=== PATIENT | female | born 1990 | race African-American/Black ===

== ENCOUNTER 2023-11-15 12:36 | Emergency (ER) | payer OTHER ==
[2023-11-15 12:45] VITALS: BMI 35.2
[2023-11-15] MEDS ORDERED: ACETAMINOPHEN INJECTION 100 ML IVPB ONE (13:25)
[2023-11-15] MEDS ORDERED: MAG HYDROX/AL HYDROX/SIMETH 30 ML UNIT-DOSE CUP ONE (13:25)
[2023-11-15] MEDS ORDERED: FAMOTIDINE 20 MG/50 ML IVPB 20 MG/50 ML MG IVPB ONE (13:25)
[2023-11-15 13:55] LABS: HEMATOCRIT 38.7 % (32.4-45.2); HEMOGLOBIN 12.5 GM/dL (10.7-15.3); MCH 26.4 pg (25.7-33.7); MCHC 32.4 g/dl (32.0-36.0); MEAN CELL VOLUME 81.5 fl (80-96); MEAN PLT VOLUME 7.6 fl (7.5-11.1); PLATELET COUNT 237 10^3/uL (134-434); RBC 4.75 M/mm3 (3.60-5.2); RDW 14.3 % (11.6-15.6); WHITE BLOOD COUNT 3.7 K/mm3 (4.0-10.0)
[2023-11-15] MEDS: MAG HYDROX/AL HYDROX/SIMETH 30 ML UNIT-DOSE CUP PO ONE (13:55)
[2023-11-15] MEDS: ACETAMINOPHEN 1000 MG/100 ML BAG IVPB ONE (13:55)
[2023-11-15] MEDS: SODIUM CHLORIDE 0.9% 500 ML INFUS.BAG IV ONE (13:55)
[2023-11-15] MEDS: FAMOTIDINE 20 MG/50 ML IVPB 20 MG/50 ML MG IVPB ONE (13:56)
[2023-11-15] MEDS ORDERED: KETOROLAC TROMETHAMINE 15 MG/ML VIAL ONE (14:09)
[2023-11-15] MEDS: KETOROLAC TROMETHAMINE 15 MG/ML VIAL IVPUSH ONE (14:11)
[2023-11-15 14:13] LABS: POTASSIUM 4.4 mmol/L (3.5-5.1)
[2023-11-15 14:16] LABS: ALBUMIN 3.6 g/dl (3.4-5.0); BLOOD UREA NITROGEN 10.8 mg/dL (7-18)
[2023-11-15 14:19] LABS: CREATININE 0.7 mg/dL (0.55-1.3)
[2023-11-15 14:20] LABS: TOT PROT 7.3 g/dl (6.4-8.2)
[2023-11-15 14:21] LABS: BILIRUBIN,TOTAL 0.3 mg/dL (0.2-1)
[2023-11-15 14:25] LABS: ANISOCYTOSIS 0; MACROCYTOSIS 0
[2023-11-15 14:31] LABS: MAGNESIUM 1.7 mg/dL (1.8-2.4)
[2023-11-15] MEDS ORDERED: MAGNESIUM OXIDE 400 MG TABLET (FP) ONE (14:46)
[2023-11-15] MEDS: MAGNESIUM OXIDE 400 MG TABLET (FP) PO ONE (14:50)
[2023-11-15 14:51] VITALS: BP 125/85; PULSE 75; RESP 19; TEMP 98
== END 2023-11-15 15:03 | disposition home or self-care (01) ==
LOC: JER 12:36
PROC: 3E033GC Introduction of Other Therapeutic Substance into Peripheral Vein, Percutaneous Approach (ICD-10-PCS; principal; 2023-11-15)
PROC: 3E033NZ Introduction of Analgesics, Hypnotics, Sedatives into Peripheral Vein, Percutaneous Approach (ICD-10-PCS; 2023-11-15)
PROC: 3E0333Z Introduction of Anti-inflammatory into Peripheral Vein, Percutaneous Approach (ICD-10-PCS; 2023-11-15)
DX: R07.89 Other chest pain (principal); Z20.822 Contact with and (suspected) exposure to COVID-19
CPT/HCPCS: 0241U-QW; 36415; 71046-TC-FY; 80053; 83690; 83735; 84439; 84443; 84484; 84703; 85025; 93005; 93010; 99285-25; J0131

== ENCOUNTER 2023-12-23 01:39 | Emergency (ER) | payer OTHER ==
[2023-12-23 01:48] VITALS: BP 128/87; RESP 18; TEMP 98.7; BMI 27.4
[2023-12-23] MEDS ORDERED: ACETAMINOPHEN 500 MG TABLET (FP) ONE (02:23)
[2023-12-23] MEDS: ACETAMINOPHEN 500 MG TABLET (FP) PO ONE (02:24)
[2023-12-23 04:00] VITALS: PULSE 98
== END 2023-12-23 04:01 | disposition home or self-care (01) ==
LOC: JER 01:39
DX: S92.902A Unspecified fracture of left foot, initial encounter for closed fracture (principal); W10.8XXA Fall (on) (from) other stairs and steps, initial encounter
CPT/HCPCS: 73630-TC-LT; 93005; 93010; 99284-25

== ENCOUNTER 2024-07-15 11:08 | Emergency (ER) | payer OTHER ==
[2024-07-15 11:15] VITALS: BP 111/77; PULSE 89; RESP 16; TEMP 98.2; BMI 28.0
[2024-07-15 12:48] LABS: BASO % 0.5 % (0-2.0); EOS % 1.9 % (0-4.5); HEMATOCRIT 35.7 % (32.4-45.2); HEMOGLOBIN 11.6 GM/dL (10.7-15.3); LYMPH % 50.5 % (8-40); MCH 25.9 pg (25.7-33.7); MCHC 32.6 g/dl (32.0-36.0); MEAN CELL VOLUME 79.4 fl (80-96); MONO % 8.8 % (3.8-10.2); NEUT % 38.3 % (42.8-82.8); PLATELET COUNT 266 10^3/uL (134-434); RBC 4.49 M/mm3 (3.60-5.2); RDW 16.1 % (11.6-15.6)
[2024-07-15 13:06] LABS: POTASSIUM 4.2 mmol/L (3.5-5.1)
[2024-07-15 13:08] LABS: CALCIUM 8.5 mg/dL (8.5-10.1)
[2024-07-15 13:09] LABS: ALBUMIN 3.3 g/dl (3.4-5.0); BLOOD UREA NITROGEN 12.6 mg/dL (7-18)
[2024-07-15 13:12] LABS: CREATININE 0.7 mg/dL (0.55-1.3)
[2024-07-15 13:12] LABS: PH,URINE 5.5 (5.0-8.0); URINE APPEARANCE TURBID; URINE BILIRUBIN NEGATIVE (NEGATIVE); URINE COLOR YELLOW; URINE GLUCOSE (UA) NEGATIVE (NEGATIVE); URINE KETONE TRACE (NEGATIVE); URINE LEUK ESTERASE NEGATIVE (NEGATIVE); URINE NITRITE NEGATIVE (NEGATIVE); URINE PROTEIN TRACE (NEGATIVE)
[2024-07-15 13:13] LABS: BILIRUBIN,TOTAL 0.2 mg/dL (0.2-1)
[2024-07-15 13:14] LABS: TOT PROT 6.3 g/dl (6.4-8.2)
[2024-07-15 13:28] LABS: HCG,QUALITATIVE URINE Negative
== END 2024-07-15 17:08 | disposition home or self-care (01) ==
LOC: JER 11:08
DX: O09.529 Supervision of elderly multigravida, unspecified trimester (principal); O26.899 Other specified pregnancy related conditions, unspecified trimester; R10.32 Left lower quadrant pain; Z3A.00 Weeks of gestation of pregnancy not specified
CPT/HCPCS: 36415; 76817-TC; 80053; 81003; 84702; 84703; 85025; 86850; 86900; 86901; 99284-25

== ENCOUNTER 2024-07-21 21:21 | Emergency (ER) | payer OTHER ==
[2024-07-21 21:36] VITALS: BP 128/83; PULSE 102; RESP 18; TEMP 97.8; BMI 27.8
[2024-07-21 23:21] LABS: HCG,QUALITATIVE URINE Positive
[2024-07-21 23:37] LABS: EPI CELLS >36 /uL (0-25.1); HYALINE CASTS 2 /uL (0-3.1); PH,URINE 5.5 (5.0-8.0); URINE APPEARANCE CLOUDY; URINE BACTERIA 1121 /uL (0-1359); URINE BILIRUBIN NEGATIVE (NEGATIVE); URINE COLOR DK YELLOW; URINE GLUCOSE (UA) NEGATIVE (NEGATIVE); URINE KETONE TRACE (NEGATIVE); URINE LEUK ESTERASE 1+ (NEGATIVE); URINE NITRITE NEGATIVE (NEGATIVE); URINE PROTEIN TRACE (NEGATIVE); URINE RBC 8 /uL (0-23.9); URINE WBC 17 /uL (0-25.8)
[2024-07-22] MEDS ORDERED: CEPHALEXIN MONOHYDRATE 500 MG CAPSULE (UD) ONE (01:06)
[2024-07-22] MEDS: CEPHALEXIN MONOHYDRATE 500 MG CAPSULE (UD) PO ONE (01:11)
== END 2024-07-22 01:13 | disposition home or self-care (01) ==
LOC: JER 21:21
DX: O99.891 Other specified diseases and conditions complicating pregnancy (principal); R07.89 Other chest pain; Z3A.00 Weeks of gestation of pregnancy not specified
CPT/HCPCS: 36415; 81003; 84702; 84703; 87086; 93005; 93010; 99283-25

== ENCOUNTER 2024-11-10 13:04 | Emergency (ER) | payer OTHER ==
[2024-11-10 13:25] VITALS: BP 137/90; PULSE 99; RESP 18; TEMP 98.9; BMI 27.3
[2024-11-10] MEDS ORDERED: IBUPROFEN 600 MG TABLET (FP) PO ONE (14:01)
[2024-11-10] MEDS ORDERED: ACETAMINOPHEN 500 MG TABLET (FP) ONE (14:11)
[2024-11-10] MEDS: ACETAMINOPHEN 500 MG TABLET (FP) PO ONE (14:16)
== END 2024-11-10 16:03 | disposition home or self-care (01) ==
LOC: JER 13:04
DX: S42.035A Nondisplaced fracture of lateral end of left clavicle, initial encounter for closed fracture (principal); Y04.0XXA Assault by unarmed brawl or fight, initial encounter
CPT/HCPCS: 73030-TC-LT-FY; 99283-25

== ENCOUNTER 2025-06-17 10:16 | Day surgery (SDC) | payer OTHER ==
[2025-06-16 09:47] VITALS: BMI 29.5
[2025-06-17] MEDS ORDERED: BUPIVACAINE LIPOSOME/PF (EXPAREL) 266 MG/20 ML VIAL ONE (12:43)
[2025-06-17] MEDS ORDERED: BUPIVACAINE HCL/PF 0.5% (5MG/ML) 10 ML VIAL ONE ×2 (12:43→13:00)
[2025-06-17] MEDS ORDERED: MIDAZOLAM HCL 2 MG/2 ML SINGLE DOSE VIAL ONE (12:44)
[2025-06-17] MEDS ORDERED: PROPOFOL 40 ML ONE (13:19)
[2025-06-17] MEDS ORDERED: PROPOFOL 20 ML ONE (14:26)
[2025-06-17] MEDS ORDERED: PROMETHAZINE HCL 25 MG/1 ML VIAL IVPB PRN (15:12)
[2025-06-17] MEDS ORDERED: ONDANSETRON 4 MG/2 ML VIAL IVPUSH PRN (15:12)
[2025-06-17] MEDS ORDERED: LACTATED RINGERS SOLUTION 1,000 ML IV SCH (15:15)
[2025-06-17] MEDS: ACETAMINOPHEN 1000 MG/100 ML BAG IVPB ONE (15:19)
[2025-06-17 16:30] VITALS: PULSE 72; RESP 16; TEMP 97.3
[2025-06-17 16:57] VITALS: BP 127/79
== END 2025-06-17 17:53 | disposition home or self-care (01) ==
LOC: FASU 10:16
PROVIDERS: ATTEND Orthopaedic Surgery Sports Medicine
PROC: 0QSN04Z Reposition Right Metatarsal with Internal Fixation Device, Open Approach (ICD-10-PCS; principal; 2025-06-17 13:30)
DX: S92.351A Displaced fracture of fifth metatarsal bone, right foot, initial encounter for closed fracture (principal); X58.XXXA Exposure to other specified factors, initial encounter; Y92.9 Unspecified place or not applicable; Y93.9 Activity, unspecified
CPT/HCPCS: 28485; C1713; 73630-TC-RT-FY; 81025; 94760; J0666